=== PATIENT | female | born 1985 | race African-American/Black ===

== ENCOUNTER 2019-12-24 07:29 | Emergency (ER) | payer MEDICAID ==
[~2019-12-24] VITALS: Ht 167.6 cm; Wt 77.1 kg
[2019-12-24 07:42] VITALS: BP 135/79
== END 2019-12-24 09:58 | disposition home or self-care (01) ==
LOC: ER 08:34
DX: J06.9 Acute upper respiratory infection, unspecified (principal)
CPT/HCPCS: 71045; 99284; C9803; U0003